=== PATIENT | female | born 1995 | race African-American/Black ===

== ENCOUNTER 2017-01-19 23:54 | Emergency (ER) | payer MEDICAID ==
[~2017-01-19] VITALS: Ht 167.6 cm; Wt 154.2 kg
[~2017-01-19 23:54] MED LIST: BENTYL10 MG ORAL; CEPHALEXIN500 MG ORAL; CORTISPORIN-TC10 M1 OT; CYCLOBENZAPRINE10 MG ORAL; IBUPROFEN600 MG ORAL; NKM; ZOFRAN4 MG ORAL
[2017-01-20 00:18] VITALS: BP 106/74
[2017-01-20 01:30] VITALS: BP 0/0
--- NOTE | 2017-01-20 05:11 | Emergency Room Report ---
History of Present Illness General Chief Complaint: Eye Problems Source: Patient Present Illness Allergies: Coded Allergies: NO KNOWN ALLERGIES (Unverified Allergy, Unknown, 04/30/15) Patient History Last Menstrual Period: 01/20/17 Now: No : 2 Para: 1 Nursing Documentation-[facility] Past Medical History: No Stated History Physical Exam Vital Signs Date Time Temp Pulse Resp B/P Pulse Ox O2 Delivery O2 Flow Rate FiO2 01/20/17 00:18 98.2 82 15 106/74 96 Room Air Medical Decision Making Diagnostic Impression: Primary Impression: LWBS ER Course Patient left without being seen Last Vital Signs Date Time Temp Pulse Resp B/P Pulse Ox O2 Delivery O2 Flow Rate FiO2 01/20/17 01:30 0/0 01/20/17 00:18 98.2 72 15 96 Room Air Status: other Disposition: LEFT W/OUT BEING SEEN Condition: Unknown Referrals: [facility],REFERRING (PCP) LUIS ENRIQUE EDDY D.O. Jan 20, 2017 05:11
== END 2017-01-20 01:30 | disposition left against medical advice (07) ==
LOC: EMR 01-20 00:47
DX: Z53.21 Procedure and treatment not carried out due to patient leaving prior to being seen by health care provider (principal)
CPT/HCPCS: 99281

== ENCOUNTER 2018-04-13 19:45 | Emergency (ER) | payer MEDICAID ==
[~2018-04-13] VITALS: Ht 167.6 cm; Wt 155.6 kg
[2018-04-13 19:53] VITALS: BP 108/78
--- NOTE | 2018-04-13 20:19 | Emergency Room Report ---
History of Present Illness General Chief Complaint: Sore Throat Source: Patient Present Illness HPI Patient presents with sore throat for 2 days. She took Motrin earlier and helped somewhat. She had chills earlier today and felt feverish and achy. After the Motrin she had perspiration. She hears herself wheezing. She just filled a prescription for an inhaler from her doctor. She denies nausea vomiting diarrhea dysuria. Her last period was from the second to the sixth in April and normal for her. Patient rates pain 3/10, burning in throat, worse with swallowing. Body pain is somewhat improved. Allergies: Coded Allergies: NO KNOWN ALLERGIES (Unverified Allergy, Unknown, 04/30/15) Patient History Past Medical History: see triage record Social History: Reports: smoking Social History Narrative with son Last Menstrual Period: 04/02/18 Now: No Reviewed Nursing Documentation: PMH: Agreed; PSxH: Agreed Nursing Documentation-PMH Past Medical History: No Stated History Review of Systems Constitutional: Reports: see HPI Eye: Denies: eye pain ENT: Reports: see HPI Respiratory: Reports: see HPI Cardiovascular: Denies: chest pain Gastrointestinal: Denies: abdominal pain Genitourinary: Reports: see HPI Musculoskeletal: Reports: see HPI Skin: Denies: rash Neurological: Denies: headache Physical Exam Vital Signs Date Time Temp Pulse Resp B/P (MAP) Pulse Ox O2 Delivery O2 Flow Rate FiO2 04/13/18 19:52 98.4 80 16 108/78 98 Room Air Sp02 EP Interpretation: reviewed, normal General Appearance: well appearing, no apparent distress Head: normocephalic, atraumatic ENT: hearing grossly normal, no angioedema, normal voice, moist mucus membranes , pharyngeal erythema, other - no exudates Neck: full range of motion, supple Respiratory: lungs clear, normal breath sounds, no respiratory distress, speaking full sentences Cardiovascular #1: regular rate, rhythm Cardiovascular #2: 2+ radial (R) Gastrointestinal: normal inspection, normal bowel sounds, non tender Musculoskeletal: digits/nails normal, gait/station normal, normal range of motion Neurologic: alert, oriented x3, normal gait, grossly normal Psychiatric: mood/affect normal Skin: no rash Medical Decision Making Diagnostic Impression: Primary Impression: Pharyngitis Qualified Codes: J02.9 - Acute pharyngitis, unspecified Additional Impression: Bronchospasm ER Course Patient presents with sore throat and fevers with some wheezing. DDX: URI, strep, bronchospasm amongst others. Exam not c/w strep. However, will give dose of prednisone as this might also help with the bronchospasm. Discussed with patient treatment plan. Patient stable for outpatient observation and treatment. Last Vital Signs Date Time Temp Pulse Resp B/P (MAP) Pulse Ox O2 Delivery O2 Flow Rate FiO2 04/13/18 22:20 98.4 76 16 108/78 98 Room Air Status: improved Disposition: HOME, SELF-CARE Condition: Improved Scripts Acetaminophen (Tylenol) 325 Mg Tablet 650 MG ORAL Q6H PRN for Prn Pain/Headache/Temp > 101, #20 TAB 0 Refills Prov: James Sutherland MD 04/13/18 Ibuprofen* (MOTRIN*) 600 Mg Tablet 600 MG ORAL Q6H PRN for For Pain, #16 TAB Prov: James Sutherland MD 04/13/18 James Sutherland MD Apr 13, 2018 20:19
[2018-04-13] MEDS ORDERED: TYLENOL325 MG ORAL (20:25)
[2018-04-13] MEDS ORDERED: IBUPROFEN600 MG ORAL (20:25)
[2018-04-13 22:20] VITALS: BP 108/78
== END 2018-04-13 22:55 | disposition home or self-care (01) ==
LOC: EMR 22:27
DX: J02.9 Acute pharyngitis, unspecified (principal); J98.01 Acute bronchospasm; F17.200 Nicotine dependence, unspecified, uncomplicated
CPT/HCPCS: 99282; J7512

== ENCOUNTER 2019-01-25 21:18 | Emergency (ER) | payer MEDICAID ==
[~2019-01-25] VITALS: Ht 167.6 cm; Wt 158.8 kg
[~2019-01-25 21:18] MED LIST changes: +TYLENOL325 MG ORAL
[2019-01-25 23:10] VITALS: BP 120/79
--- NOTE | 2019-01-25 23:10 | NUR ---
ED Nurse Note: Patient walked into ER c/o headache X2 days. AAO x4, VSS at this time, skin is dry warm to touch.
[2019-01-25] MEDS ORDERED: IBUPROFEN600 MG ORAL (23:42)
--- NOTE | 2019-01-25 23:42 | Emergency Room Report ---
History of Present Illness General Chief Complaint: Headache Source: Patient Present Illness HPI Is a 23-year-old female with history of hypertension. She presents with chief complaint of headache. Onset for last 2 to 3 days. Usually at night when he tried to go to sleep. Throbbing in nature. No fever chills but no nausea no vomiting. Pain is diffuse. 7 out of 10. Has not taken anything for it. Allergies: Coded Allergies: NO KNOWN ALLERGIES (Unverified Allergy, Unknown, 04/30/15) Patient History Past Medical History: see triage record, old chart reviewed, HTN Social History: Denies: smoking Last Menstrual Period: 01/14/19 Now: No Immunizations: other Reviewed Nursing Documentation: PMH: Agreed; PSxH: Agreed Nursing Documentation-PMH Past Medical History: No History, Except For Hx Hypertension: Yes Review of Systems Eye: Denies: eye pain, blurred vision ENT: Denies: ear pain, nose congestion, throat swelling Respiratory: Denies: cough, shortness of breath Cardiovascular: Denies: chest pain, palpitations Gastrointestinal: Denies: abdominal pain, diarrhea, nausea, vomiting Musculoskeletal: Denies: back pain, joint pain Skin: Denies: rash Neurological: Reports: headache; Denies: numbness Endocrine: Denies: increased thirst, increased urine Hematologic/Lymphatic: Denies: easy bruising All Other Systems: negative except mentioned in HPI Physical Exam Vital Signs Date Time Temp Pulse Resp B/P (MAP) Pulse Ox O2 Delivery O2 Flow Rate FiO2 01/25/19 22:38 98.2 77 18 120/79 (93) 97 Room Air Vitals normal Sp02 EP Interpretation: reviewed, normal General Appearance: well appearing, no apparent distress, alert, obese Head: normocephalic, atraumatic Eyes: bilateral eye PERRL, bilateral eye EOMI ENT: hearing grossly normal, normal pharynx Neck: full range of motion, supple, no meningismus Respiratory: chest non-tender, lungs clear, normal breath sounds Cardiovascular #1: regular rate, rhythm, no murmur Gastrointestinal: normal bowel sounds, non tender, no mass, no organomegaly, no bruit, non-distended Musculoskeletal: back normal, gait/station normal, normal range of motion Psychiatric: mood/affect normal Medical Decision Making Diagnostic Impression: Primary Impression: Headache Qualified Codes: G44.209 - Tension-type headache, unspecified, not intractable ER Course Patient with headache. Most likely tension in nature. No evidence of bleed, meningitis, neoplastic process. Will discharge home. Last Vital Signs Date Time Temp Pulse Resp B/P (MAP) Pulse Ox O2 Delivery O2 Flow Rate FiO2 01/25/19 23:10 98.2 18 120/79 97 Room Air 01/25/19 22:38 77 Status: unchanged Disposition: HOME, SELF-CARE Condition: Stable Scripts Ibuprofen* (MOTRIN*) 600 Mg Tablet 600 MG ORAL THREE TIMES A DAY, #30 TAB 0 Refills Prov: Enrrique Mcneal MD 01/25/19 Patient Instructions: Tension Headache Additional Instructions: Follow-up with your doctor in 7 days. Return if worse. Enrrique Mcneal MD Jan 25, 2019 23:42
[2019-01-25 23:54] VITALS: BP 120/79
--- NOTE | 2019-01-25 23:55 | NUR ---
ED Nurse Note: Pt cleared by health care Provider for discharge. DC instructions/prescription was given and explained to pt and verbalized understanding of teachings. All medical deviecs such as ID band removed. Pt is AAO x4, ambulatory and left with all personal belongings.
== END 2019-01-25 23:55 | disposition home or self-care (01) ==
LOC: EMR 21:32
DX: G44.209 Tension-type headache, unspecified, not intractable (principal); I10 Essential (primary) hypertension
CPT/HCPCS: 99282